=== PATIENT | female | born 1965 | race Caucasian/White ===

== ENCOUNTER 2017-11-30 12:42 | Inpatient (IN) | payer MEDICARE, MEDICAID ==
[2017-11-30] MEDS ORDERED: Albuterol 0.083% 2.5 MG/3 ML Neb Soln NEB ONE (14:06)
[2017-11-30] MEDS ORDERED: Ketorolac 30 MG/ML SDV IVPUSH ONE (16:57)
[2017-11-30] MEDS ORDERED: Sodium Chloride 0.9% 10 ML Syringe FLUSH PRN (16:57)
[2017-11-30] MEDS ORDERED: Sodium Chloride 0.9% 500 ML IV ONE (16:57)
--- NOTE | 2017-11-30 20:37 | EDM.PDOC ---
ED HPI GENERAL MEDICAL PROBLEM - General Chief Complaint: Respiratory Problem Stated Complaint: TROUBLE BREATHING Time Seen by Provider: 11/30/17 13:37 History Limitations: Reports: Physical Impairment - History of Present Illness INITIAL COMMENTS - FREE TEXT/NARRATIVE: 52-year-old disabled woman presents with [facility] staff for evaluation treatment of shortness of breath and wheezing. Patient was reportedly seen at the [place] walk-in clinic yesterday. She was diagnosed with influenza A and started on Tamiflu. She had labs and chest x-ray done, which were according to were staff unremarkable. There instructed to bring her to the ER should her breathing worsen. Appreciate today that she started wheezing and having more difficulty breathing. They report that she's had a fever, highest of 101.4, last night. She 's not had any vomiting or diarrhea. She did have 3 bowel movements today. She is dependent on oxygen via nasal cannula at 2 L. Staff states that they check her oxygen sats periodically and she has been satting on 98% on 2 L. she has a G-tube and she receives feedings around 8 AM, 3 PM and 9. They have increased her water flushes 150 mls to 250 mls due to recent illness. Have been giving Tylenol and Pedis relief for fevers and symptom relief. Last dose was around 1145. She received an influenza vaccine this season. Primary care provider is Puja Tompkins. She is a DNR/DNI. Treatments PET SITTER: Reports: Other (see below) - Related Data Allergies Allergy/AdvReac Type Severity Reaction Status Date / Time No Known Allergies Allergy Verified 12/06/15 12:12 Home Meds: Home Meds Cholecalciferol (Vitamin D3) [Vitamin D3] 2,000 unit PO DAILY 06/07/14 [History] Diazepam 5 mg PO BEDTIME 06/07/14 [History] Diazepam [Valium] 2.5 mg PO QAM 06/07/14 [History] Lactulose [Generlac] 30 ml PO BID 06/07/14 [History] PHENobarbital 32.4 mg PO QAM 06/07/14 [History] PHENobarbital 48.6 mg PO BEDTIME 06/07/14 [History] Antipyrine/Benzocaine [Otic Care Otic Solution] 5 - 10 drop EARBOTH ASDIRECTED PRN 06/23/14 [History] Fleet Pedia-Lax Suppository 1 mg RECTAL ASDIRECTED PRN 10/21/14 [History] Acetaminophen [Acephen] 325 mg RECTAL Q4HR PRN 12/06/15 [History] Clindamycin 1% Topical. 1 applic TOP BID 12/06/15 [History] Clotrimazole [Clotrimazole 1%] 1 applic TOP BID 12/06/15 [History] Desitin Rapid Relief Topical Cream 1 applic TOP ASDIRECTED PRN 12/06/15 [History ] Scopolamine [Transderm-Scop] 1 patch TOP Q72H 12/06/15 [History] carBAMazepine [Carbamazepine] 600 mg GTUBE BID 12/06/15 [History] Nutritional Supplement [Osmolite 1.2 Juan Manuel] 1 can GTUBE BID 11/30/17 [History] Nutritional Supplement [Osmolite 1.2 Juan Manuel] 2 can GTUBE BEDTIME 11/30/17 [History] Whey Protein Isolate [Beneprotein] 2 scoop GTUBE DAILY 11/30/17 [History] Past Medical History Musculoskeletal History: Reports: Other (See Below) Other Musculoskeletal History: 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; pt is w/c bound Neurological History: Reports: Cerebral Palsy, Seizure - Past Surgical History GI Surgical History: Reports: Other (See Below) Social & Family History - Tobacco Use Smoking Status *Q: Never Smoker Second Hand Smoke Exposure: No - Caffeine Use Caffeine Use: Reports: None - Alcohol Use Days Per Week of Alcohol Use: 0 - Recreational Drug Use Recreational Drug Use: No Drug Use in Last 12 Months: No ED ROS GENERAL - Review of Systems Review Of Systems: See Below (obtained from [facility] staff) Constitutional: Reports: Fever Respiratory: Reports: Shortness of Breath, Wheezing, Cough GI/Abdominal: Denies: Diarrhea, Vomiting ED EXAM, GENERAL - Physical Exam Exam: See Below Exam Limited By: Physical Impairment General Appearance: Moderate Distress, Other (wheelchair bound, severe scolosis) Ears: Normal External Exam Respiratory/Chest: Rhonchi, Wheezing, Other (tachypnea) Cardiovascular: No Murmur, Tachycardia GI/Abdominal: Soft, Other (G tube in place) Neurological: Alert Skin Exam: Warm, Dry, Normal Color Course - Vital Signs Last Recorded V/S: Last Vital Signs Temp 36.9 C 11/30/17 22:30 Pulse 109 H 11/30/17 13:37 Resp 29 H 11/30/17 22:30 BP 98/54 L 11/30/17 22:30 Pulse Ox 100 11/30/17 23:06 - Orders/Labs/Meds Orders: Active Orders 24 hr Category Date Time Status RT Aerosol Therapy [RC] ASDIRECTED Care 11/30/17 14:06 Active Chest 1V Frontal [CR] Stat Exams 11/30/17 14:06 Taken Sodium Chloride 0.9% [Saline Flush] Med 11/30/17 16:57 Active 10 ml FLUSH ASDIRECTED PRN Peripheral IV Insertion Adult [OM.PC] Routine Oth 11/30/17 16:57 Ordered Medication Orders Albuterol/Ipratropium (Duoneb 3.0-0.5 Mg/3 Ml) 3 ml NEB QIDRT [facility] Carbamazepine (Tegretol Tab) 600 mg GTUBE BID [facility] Diazepam (Valium.) 2.5 mg PO QAM [facility] Diazepam (Valium.) 5 mg PO BEDTIME [facility] Enoxaparin Sodium (Lovenox) 30 mg SUBCUT DAILY [facility] Sodium Chloride (Normal Saline) 1,000 mls @ 75 mls/hr IV ASDIRECTED [facility] Miscellaneous Information (Remove Patch) 1 ea TRDERM Q72H [facility] Phenobarbital (Phenobarbital) 32.4 mg PO QAM [facility] Phenobarbital (Phenobarbital) 48.6 mg PO BEDTIME [facility] Scopolamine (Scopolamine) 1 each TOP Q72H [facility] Sodium Chloride (Saline Flush) 10 ml FLUSH ASDIRECTED PRN PRN Reason: Keep Vein Open Last Admin: 11/30/17 18:04 Dose: 10 ml Labs: Laboratory Tests 11/30/17 11/30/17 Range/Units 17:50 17:50 WBC 7.93 (3.98-10.04) K/mm3 RBC 4.34 (3.98-5.22) M/mm3 Hgb 13.8 (11.2-15.7) gm/L Hct 41.6 (34.1-44.9) % MCV 95.9 H (79.4-94.8) fl MCH 31.8 (25.6-32.2) pg MCHC 33.2 (32.2-35.5) g/dl RDW Std Deviation 43.9 (36.4-46.3) fL Plt Count 174 L (182-369) K/mm3 MPV 10.3 (9.4-12.3) fl Neutrophils % (Manual) 69 H (40-60) % Band Neutrophils % 0 (0-10) % Lymphocytes % (Manual) 12 L (20-40) % Atypical Lymphs % 0 % Monocytes % (Manual) 19 H (2-10) % Eosinophils % (Manual) 0 L (0.7-5.8) % Basophils % (Manual) 0 L (0.1-1.2) Platelet Estimate Adequate Plt Morphology Comment Normal RBC Morph Comment Normal Sodium 133 L (136-145) mEq/L Potassium 4.4 (3.5-5.1) mEq/L Chloride 96 L (98-107) mEq/L Carbon Dioxide 32 (21-32) mEq/L Anion Gap 9.4 (5-15) BUN 11 (7-18) mg/dL Creatinine 0.6 (0.55-1.02) mg/dL Est Cr Clr Drug Dosing 67.52 mL/min Estimated GFR (MDRD) > 60 (>60) mL/min BUN/Creatinine Ratio 18.3 H (14-18) Glucose 115 H (74-106) mg/dL Calcium 9.2 (8.5-10.1) mg/dL Total Bilirubin 0.2 (0.2-1.0) mg/dL AST 30 (15-37) U/L ALT 38 (14-59) U/L Alkaline Phosphatase 114 (46-116) U/L C-Reactive Protein 23.7 H* (<1.0) mg/dL Total Protein 7.8 (6.4-8.2) g/dl Albumin 3.3 L (3.4-5.0) g/dl Globulin 4.5 gm/dL Albumin/Globulin Ratio 0.7 L (1-2) Meds: Medications Generic Name Dose Route Start Last Admin Trade Name Freq PRN Reason Stop Dose Admin Albuterol/Ipratropium 3 ml 12/01/17 22:39 Duoneb 3.0-0.5 Mg/3 Ml NEB QIDRT [facility] Carbamazepine 600 mg 11/30/17 22:45 Tegretol Tab GTUBE BID [facility] Diazepam 2.5 mg 12/01/17 08:00 Valium. PO QAM [facility] Diazepam 5 mg 11/30/17 22:51 Valium. PO BEDTIME [facility] Enoxaparin Sodium 30 mg 12/01/17 09:00 Lovenox SUBCUT DAILY [facility] Sodium Chloride 1,000 mls @ 75 mls/hr 11/30/17 22:30 Normal Saline IV ASDIRECTED [facility] Miscellaneous Information 1 ea 12/02/17 09:00 Remove Patch TRDERM Q72H [facility] Phenobarbital 32.4 mg 12/01/17 08:00 Phenobarbital PO QAM [facility] Phenobarbital 48.6 mg 11/30/17 23:00 Phenobarbital PO BEDTIME [facility] Scopolamine 1 each 12/02/17 09:00 Scopolamine TOP Q72H [facility] Sodium Chloride 10 ml 11/30/17 16:57 11/30/17 18:04 Saline Flush FLUSH 10 ml ASDIRECTED PRN Administration Keep Vein Open Discontinued Medications Generic Name Dose Route Start Last Admin Trade Name Freq PRN Reason Stop Dose Admin Albuterol 2.5 mg 11/30/17 14:06 11/30/17 14:12 Proventil Neb Soln NEB 11/30/17 14:07 2.5 mg ONETIME ONE Administration Albuterol/Ipratropium Confirm 11/30/17 22:51 11/30/17 22:57 Duoneb 3.0-0.5 Mg/3 Ml Administered 11/30/17 22:52 3 ml Dose Administration 3 ml .ROUTE .STK-MED ONE Diazepam 5 mg 12/01/17 21:00 Valium. PO BEDTIME [facility] Sodium Chloride 500 mls @ 500 mls/hr 11/30/17 16:57 11/30/17 18:03 Normal Saline IV 11/30/17 17:56 500 mls/hr ONETIME ONE Administration Sodium Chloride 1,000 mls @ 75 mls/hr 11/30/17 20:45 11/30/17 20:47 Normal Saline IV 75 mls/hr ASDIRECTED [facility] Administration Ketorolac Tromethamine 30 mg 11/30/17 16:57 11/30/17 18:04 Toradol IVPUSH 11/30/17 16:58 30 mg ONETIME ONE Administration Phenobarbital 48.6 mg 12/01/17 21:00 Phenobarbital PO BEDTIME [facility] - Radiology Interpretation Free Text/Narrative:: Chest: Portable view of the chest was obtained. Comparison: Prior chest x-ray of 12/06/15. Heart size and mediastinum are normal. Lungs are clear. Severe scoliosis is noted. Gastrostomy tube is seen. Impression: 1. Incidental findings. Nothing acute is appreciated. - Re-Assessments/Exams Free Text/Narrative Re-Assessment/Exam: 11/30/17 21:13 Obtained note from [facility] yesterday. States that she was influenza A positive and started on Tamiflu. Chest x-ray was interpreted by normal by this provider. CBC was reported as essentially normal. Initially I felt that we could possibly send her back after suctioning and albuterol treatments. We attempted to suction on several occasions and gave her an albuterol neb but this did not improve her wheezing and shortness of breath. I do feel she needs to be admitted. We have established an IV and started giving her fluid as well as obtaining labs. I informed the patient's mother, Lizzeth, at [phone] about my intention to admit her. She will likely come and see her tomorrow. Plan will be for [facility] staff to spend the night with her here in the hospital. Discussed the case with Dr. Johnson, hospitalist on-call. She has seen the patient in the ER and agrees to the admission. Departure - Departure Time of Disposition: 21:55 Disposition: Admitted As Inpatient 67 Condition: Poor Clinical Impression: Influenza A, Seizure disorder, Gastrostomy feeding - Discharge Information - My Orders Last 24 Hours: My Active Orders 11/30/17 14:06 RT Aerosol Therapy [RC] ASDIRECTED Chest 1V Frontal [CR] Stat 11/30/17 16:57 Sodium Chloride 0.9% [Saline Flush] 10 ml FLUSH ASDIRECTED PRN Peripheral IV Insertion Adult [OM.PC] Routine - Assessment/Plan Last 24 Hours: My Active Orders 11/30/17 14:06 RT Aerosol Therapy [RC] ASDIRECTED Chest 1V Frontal [CR] Stat 11/30/17 16:57 Sodium Chloride 0.9% [Saline Flush] 10 ml FLUSH ASDIRECTED PRN Peripheral IV Insertion Adult [OM.PC] Routine
[2017-11-30] MEDS ORDERED: Sodium Chloride 0.9% 1,000 ML IV SCH (20:45)
[2017-11-30] MEDS ORDERED: Albuterol/Ipratropium 3.0-0.5 MG/3 ML Neb Soln ONE (22:51)
[2017-12-01] MEDS: PHENobarbital 32.4 MG Tab PO SCH ×3 (00:15→21:00)
[2017-12-01] MEDS: carBAMazepine 200 MG Tab GTUBE SCH ×3 (00:15→20:59)
[2017-12-01] MEDS: Diazepam 5 MG Tab PO SCH ×3 (00:15→21:01)
[2017-12-01] MEDS: Sodium Chloride 0.9% 1,000 ML IV SCH ×2 (03:10→17:18)
[2017-12-01] MEDS: Albuterol/Ipratropium 3.0-0.5 MG/3 ML Neb Soln NEB SCH ×4 (05:10→20:14)
--- NOTE | 2017-12-01 08:02 | CR ---
Chest: Portable view of the chest was obtained. Comparison: Prior chest x-ray of 12/06/15. Heart size and mediastinum are normal. Lungs are clear. Severe scoliosis is noted. Gastrostomy tube is seen. Impression: 1. Incidental findings. Nothing acute is appreciated. Diagnostic code #2
[2017-12-01] MEDS ORDERED: Albuterol 0.083% 2.5 MG/3 ML Neb Soln ONE (08:19)
[2017-12-01] MEDS ORDERED: Albuterol 0.021% 0.63 MG/3 ML Neb Soln NEB PRN (08:26)
[2017-12-01] MEDS ORDERED: Enoxaparin 30 MG/0.3 ML Syringe SUBCUT SCH (09:00)
--- NOTE | 2017-12-01 16:27 | PCM.HP ---
H&P History of Present Illness - General Date of Service: 11/30/17 Admit Problem/Dx: Admission Diagnosis/Problem Admission Diagnosis/Problem Influenza Source of Information: Provider History Limitations: Reports: No Limitations - History of Present Illness Initial Comments - Free Text/Narative: 52 year old female with history of severe scoliosis, cerebral palsy presents with acute respiratory distress. She had nausea without vomiting. Temp was documented at 101.4F. She was diagnosed with Influenza A, 1 day [employer] and was started on Tamiflu at the [facility] in clinic. Reportedly the [facility] residents are on Tamiflu for Influenza prevention. It has been reported that the patient had a flu vaccination as well. She requires chronic O2 therapy, 2 l / min. This requirement is unchanged in the ED. CXR, labs are unremarkable, however she has experienced difficulty breathing. The patient requires airway suction every 2 hours. Onset of Symptoms: Reports: Unknown/Unsure Duration of Symptoms: Reports: Day(s):, Getting Worse Location: Reports: Chest, Generalized Severity: Moderate Improves with: Reports: Medication Worsens with: Reports: None Context: Reports: Sick Contact Associated Symptoms: Reports: Chest Pain, Fever/Chills, Nausea/Vomiting, Shortness of Breath, Weakness - Related Data Allergies/Adverse Reactions: Allergies Allergy/AdvReac Type Severity Reaction Status Date / Time No Known Allergies Allergy Verified 12/06/15 12:12 Home Medications: Home Meds Cholecalciferol (Vitamin D3) [Vitamin D3] 2,000 unit PO DAILY 06/07/14 [History] Diazepam 5 mg PO BEDTIME 06/07/14 [History] Diazepam [Valium] 2.5 mg PO QAM 06/07/14 [History] Lactulose [Generlac] 30 ml PO BID 06/07/14 [History] PHENobarbital 32.4 mg PO QAM 06/07/14 [History] PHENobarbital 48.6 mg PO BEDTIME 06/07/14 [History] Antipyrine/Benzocaine [Otic Care Otic Solution] 5 - 10 drop EARBOTH ASDIRECTED PRN 06/23/14 [History] Fleet Pedia-Lax Suppository 1 mg RECTAL ASDIRECTED PRN 10/21/14 [History] Acetaminophen [Acephen] 325 mg RECTAL Q4HR PRN 12/06/15 [History] Clindamycin 1% Topical. 1 applic TOP BID 12/06/15 [History] Clotrimazole [Clotrimazole 1%] 1 applic TOP BID 12/06/15 [History] Desitin Rapid Relief Topical Cream 1 applic TOP ASDIRECTED PRN 12/06/15 [History ] Scopolamine [Transderm-Scop] 1 patch TOP Q72H 12/06/15 [History] carBAMazepine [Carbamazepine] 600 mg GTUBE BID 12/06/15 [History] Nutritional Supplement [Osmolite 1.2 Juan Manuel] 1 can GTUBE BID 11/30/17 [History] Nutritional Supplement [Osmolite 1.2 Juan Manuel] 2 can GTUBE BEDTIME 11/30/17 [History] Whey Protein Isolate [Beneprotein] 2 scoop GTUBE DAILY 11/30/17 [History] Past Medical History Musculoskeletal History: Reports: Other (See Below) Other Musculoskeletal History: 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; pt is w/c bound Neurological History: Reports: Cerebral Palsy, Seizure - Past Surgical History GI Surgical History: Reports: Other (See Below) Social & Family History - Family History Family Medical History: Unobtainable - Tobacco Use Smoking Status *Q: Never Smoker Second Hand Smoke Exposure: No - Caffeine Use Caffeine Use: Reports: None - Alcohol Use Days Per Week of Alcohol Use: 0 - Recreational Drug Use Recreational Drug Use: No Drug Use in Last 12 Months: No H&P Review of Systems - Review of Systems: Review Of Systems: See Below General: Reports: Fever, Chills, Malaise, Weakness, Fatigue HEENT: Reports: No Symptoms Pulmonary: Reports: Shortness of Breath, Wheezing Cardiovascular: Reports: No Symptoms Gastrointestinal: Reports: No Symptoms Genitourinary: Reports: No Symptoms Musculoskeletal: Reports: No Symptoms Skin: Reports: No Symptoms Psychiatric: Reports: Confusion Neurological: Reports: No Symptoms Hematologic/Lymphatic: Reports: No Symptoms Immunologic: Reports: No Symptoms Exam - Exam Exam: See Below - Vital Signs Vital Signs: Last Vital Signs Temp 37.2 C 12/01/17 12:00 Pulse 109 H 11/30/17 13:37 Resp 30 H 12/01/17 12:00 BP 134/90 12/01/17 12:00 Pulse Ox 100 12/01/17 12:00 Weight: 38.555 kg - Exam Quality Assessment: Supplemental Oxygen, DVT Prophylaxis General: Lethargic HEENT: Pupils Equal, Pupils Reactive, PERRLA Neck: Other (scoliosis) Lungs: Decreased Breath Sounds, Rhonchi, Wheezing Cardiovascular: Regular Rate, Tachycardia GI/Abdominal Exam: Normal Bowel Sounds, Soft, Non-Tender, No Organomegaly, No Distention (Female) Exam: Deferred Rectal (Female) Exam: Deferred Back Exam: Other (profound curvature of the spine, 80 degree angle) Extremities: Slow Capillary Refill Skin: Intact Neuro Extensive - Mental Status: Inattentive Neuro Extensive - Motor, Sensory, Reflexes: CN II-XII Intact - Patient Data Result Diagrams: 11/30/17 17:50 11/30/17 17:50 *Q Meaningful Use (ADM) - VTE *Q VTE Criteria *Q: - Stroke *Q Stroke Criteria *Q: - AMI *Q AMI Criteria *Q: - Problem List (1) Gastrostomy feeding SNOMED Code(s): 100648594 ICD Code: Z93.1 - GASTROSTOMY STATUS Status: Acute Current Visit: Yes (2) Influenza A SNOMED Code(s): 858895479 ICD Code: J10.1 - FLU DUE TO OTH IDENT INFLUENZA VIRUS W OTH RESP MANIFEST Status: Acute Current Visit: Yes (3) Seizure disorder SNOMED Code(s): 791384881 ICD Code: G40.909 - EPILEPSY, UNSP, NOT INTRACTABLE, WITHOUT STATUS EPILEPTICUS Status: Acute Current Visit: Yes Onset Date: 09/23/14 Problem Details: history of (4) Cachexia SNOMED Code(s): 203752608 ICD Code: R64 - CACHEXIA Status: Acute Current Visit: No (5) Dysphagia SNOMED Code(s): 67089730 ICD Code: R13.10 - DYSPHAGIA, UNSPECIFIED Status: Acute Current Visit: No Problem List Initiated/Reviewed/Updated: Yes Orders Last 24hrs: Active Orders 24 hr Category Date Time Status Admission Status [Patient Status] [ADT] Routine ADT 11/30/17 22:05 Active Oxygen Therapy [RC] ASDIRECTED Care 11/30/17 23:41 Active NPO [Nothing Per Oral Diet] [DIET] Diet 11/30/17 Dinner Active Nothing Per Oral Diet [DIET] Diet 12/01/17 Lunch Active Tube Feeding Adult Diet [DIET] Diet 12/01/17 Dinner Active CULTURE MRSA SURVEY [RM] Routine Lab 12/01/17 14:00 Stop Req METH-RESIST S.AUR,MRSA BY PCR [MOLEC] Routine Lab 12/01/17 14:00 Received Albuterol [Proventil Neb Soln] Med 12/01/17 08:26 Active 0.63 mg NEB Q2H PRN Albuterol/Ipratropium [DuoNeb 3.0-0.5 MG/3 ML] Med 12/01/17 06:00 Active 3 ml NEB QIDRT Diazepam [Valium] Med 12/01/17 08:00 Active 2.5 mg PO QAM Diazepam [Valium] Med 11/30/17 22:51 Active 5 mg PO BEDTIME Enoxaparin [Lovenox] Med 12/02/17 09:00 Active 40 mg SUBCUT DAILY Oseltamivir [Tamiflu] Med 12/02/17 09:00 Active 75 mg PO DAILY PHENobarbital Med 12/01/17 08:00 Active 32.4 mg PO QAM PHENobarbital Med 11/30/17 23:00 Active 48.6 mg PO BEDTIME Remove Patch Med 12/02/17 09:00 Active 1 ea TRDERM Q72H Scopolamine Med 12/02/17 09:00 Active 1 each TOP Q72H Sodium Chloride 0.9% [Normal Saline] 1,000 ml Med 11/30/17 22:30 Active IV ASDIRECTED carBAMazepine [TEGretol Tab] Med 11/30/17 22:45 Active 600 mg GTUBE BID RT Suction Oropharyngeal [RESPCARE] Routine Oth 11/30/17 22:33 Ordered Code Status [Resuscitation Status] Routine Resus Stat 11/30/17 23:57 Ordered Medication Orders Albuterol (Proventil Neb Soln) 0.63 mg NEB Q2H PRN PRN Reason: Wheezing Albuterol/Ipratropium (Duoneb 3.0-0.5 Mg/3 Ml) 3 ml NEB QIDRT [facility] Last Admin: 12/01/17 15:54 Dose: 3 ml Admin: 12/01/17 10:04 Dose: 3 ml Admin: 12/01/17 05:10 Dose: 3 ml Carbamazepine (Tegretol Tab) 600 mg GTUBE BID [facility] Last Admin: 12/01/17 09:40 Dose: 600 mg Admin: 12/01/17 00:15 Dose: 600 mg Diazepam (Valium.) 2.5 mg PO QAM [facility] Last Admin: 12/01/17 09:40 Dose: 2.5 mg Diazepam (Valium.) 5 mg PO BEDTIME [facility] Last Admin: 12/01/17 00:15 Dose: 5 mg Enoxaparin Sodium (Lovenox) 40 mg SUBCUT DAILY [facility] Sodium Chloride (Normal Saline) 1,000 mls @ 75 mls/hr IV ASDIRECTED [facility] Last Admin: 12/01/17 03:10 Dose: 75 mls/hr Miscellaneous Information (Remove Patch) 1 ea TRDERM Q72H [facility] Oseltamivir Phosphate (Tamiflu) 75 mg PO DAILY [facility] Stop: 12/05/17 09:01 Phenobarbital (Phenobarbital) 32.4 mg PO QAM [facility] Last Admin: 12/01/17 09:41 Dose: 32.4 mg Phenobarbital (Phenobarbital) 48.6 mg PO BEDTIME [facility] Last Admin: 12/01/17 00:15 Dose: 48.6 mg Scopolamine (Scopolamine) 1 each TOP Q72H [facility] Sodium Chloride (Saline Flush) 10 ml FLUSH ASDIRECTED PRN PRN Reason: Keep Vein Open Last Admin: 11/30/17 18:04 Dose: 10 ml Assessment/Plan Comment:: Impression: Febrile illness Acute respiratory distress Acute Influenza A infection; failed Flu vaccination Dehydration Cerebral Palsy Seizure Disorder Severe Scoliosis; restrictive airway disease Plan: Scheduled suction Q2 hours IVF Tamiflu Nebs scheduled and prn Keep O2 sat > 92% SZ/home meds Aspiration precautions Resume tube feeds with free H2O DVT/GI prophylaxis DC to [facility] Facility
--- NOTE | 2017-12-01 16:27 | PCM.PN ---
- General Info Date of Service: 12/01/17 Functional Status: Reports: Tolerating Diet, Urinating - Review of Systems General: Reports: No Symptoms HEENT: Reports: No Symptoms Pulmonary: Reports: No Symptoms Cardiovascular: Reports: No Symptoms Gastrointestinal: Reports: No Symptoms Genitourinary: Reports: No Symptoms Musculoskeletal: Reports: No Symptoms Skin: Reports: No Symptoms Neurological: Reports: No Symptoms Psychiatric: Reports: No Symptoms - Patient Data Vitals - Most Recent: Last Vital Signs Temp 37.2 C 12/01/17 12:00 Pulse 109 H 11/30/17 13:37 Resp 30 H 12/01/17 12:00 BP 134/90 12/01/17 12:00 Pulse Ox 100 12/01/17 12:00 Weight - Most Recent: 38.555 kg I&O - Last 24 Hours: Intake & Output 12/01/17 12/01/17 12/01/17 06:59 14:59 22:59 Intake Total 924 Balance 924 Med Orders - Current: Current Medications Albuterol (Proventil Neb Soln) 0.63 mg NEB Q2H PRN PRN Reason: Wheezing Albuterol/Ipratropium (Duoneb 3.0-0.5 Mg/3 Ml) 3 ml NEB QIDRT [facility] Last Admin: 12/01/17 15:54 Dose: 3 ml Carbamazepine (Tegretol Tab) 600 mg GTUBE BID [facility] Last Admin: 12/01/17 09:40 Dose: 600 mg Diazepam (Valium.) 2.5 mg PO QAM [facility] Last Admin: 12/01/17 09:40 Dose: 2.5 mg Diazepam (Valium.) 5 mg PO BEDTIME [facility] Last Admin: 12/01/17 00:15 Dose: 5 mg Enoxaparin Sodium (Lovenox) 40 mg SUBCUT DAILY [facility] Sodium Chloride (Normal Saline) 1,000 mls @ 75 mls/hr IV ASDIRECTED [facility] Last Admin: 12/01/17 03:10 Dose: 75 mls/hr Miscellaneous Information (Remove Patch) 1 ea TRDERM Q72H [facility] Oseltamivir Phosphate (Tamiflu) 75 mg PO DAILY [facility] Stop: 12/05/17 09:01 Phenobarbital (Phenobarbital) 32.4 mg PO QAM [facility] Last Admin: 12/01/17 09:41 Dose: 32.4 mg Phenobarbital (Phenobarbital) 48.6 mg PO BEDTIME [facility] Last Admin: 12/01/17 00:15 Dose: 48.6 mg Scopolamine (Scopolamine) 1 each TOP Q72H [facility] Sodium Chloride (Saline Flush) 10 ml FLUSH ASDIRECTED PRN PRN Reason: Keep Vein Open Last Admin: 11/30/17 18:04 Dose: 10 ml Discontinued Medications Albuterol (Proventil Neb Soln) 2.5 mg NEB ONETIME ONE Stop: 11/30/17 14:07 Last Admin: 11/30/17 14:12 Dose: 2.5 mg Albuterol (Proventil Neb Soln) Confirm Administered Dose 2.5 mg .ROUTE .STK-MED ONE Stop: 12/01/17 08:20 Last Admin: 12/01/17 08:39 Dose: 2.5 mg Albuterol/Ipratropium (Duoneb 3.0-0.5 Mg/3 Ml) 3 ml NEB QIDRT [facility] Albuterol/Ipratropium (Duoneb 3.0-0.5 Mg/3 Ml) Confirm Administered Dose 3 ml .ROUTE .STK-MED ONE Stop: 11/30/17 22:52 Last Admin: 11/30/17 22:57 Dose: 3 ml Diazepam (Valium.) 5 mg PO BEDTIME [facility] Enoxaparin Sodium (Lovenox) 30 mg SUBCUT DAILY [facility] Last Admin: 12/01/17 09:41 Dose: 30 mg Sodium Chloride (Normal Saline) 500 mls @ 500 mls/hr IV ONETIME ONE Stop: 11/30/17 17:56 Last Admin: 11/30/17 18:03 Dose: 500 mls/hr Sodium Chloride (Normal Saline) 1,000 mls @ 75 mls/hr IV ASDIRECTED [facility] Last Admin: 11/30/17 20:47 Dose: 75 mls/hr Ketorolac Tromethamine (Toradol) 30 mg IVPUSH ONETIME ONE Stop: 11/30/17 16:58 Last Admin: 11/30/17 18:04 Dose: 30 mg Phenobarbital (Phenobarbital) 48.6 mg PO BEDTIME [facility] - Exam Quality Assessment: Supplemental Oxygen, DVT Prophylaxis General: Alert, Oriented, Cooperative, No Acute Distress HEENT: Pupils Equal, Pupils Reactive, EOMI Neck: Trachea Midline, No JVD Lungs: Decreased Breath Sounds, Wheezing Cardiovascular: Regular Rate, Regular Rhythm GI/Abdominal Exam: Normal Bowel Sounds, Soft, Non-Tender, No Organomegaly, No Distention (Female) Exam: Deferred Back Exam: Normal Inspection Extremities: Normal Inspection Skin: Warm Neurological: No New Focal Deficit Psy/Mental Status: Alert - Problem List Review Problem List Initiated/Reviewed/Updated: Yes - My Orders Last 24 Hours: My Active Orders 11/30/17 22:05 Admission Status [Patient Status] [ADT] Routine 11/30/17 22:30 Sodium Chloride 0.9% [Normal Saline] 1,000 ml IV ASDIRECTED 11/30/17 22:33 RT Suction Oropharyngeal [RESPCARE] Routine 11/30/17 22:45 carBAMazepine [TEGretol Tab] 600 mg GTUBE BID 11/30/17 22:51 Diazepam [Valium] 5 mg PO BEDTIME 11/30/17 23:00 PHENobarbital 48.6 mg PO BEDTIME 11/30/17 23:41 Oxygen Therapy [RC] ASDIRECTED 11/30/17 23:57 Code Status [Resuscitation Status] Routine 11/30/17 Dinner NPO [Nothing Per Oral Diet] [DIET] 12/01/17 06:00 Albuterol/Ipratropium [DuoNeb 3.0-0.5 MG/3 ML] 3 ml NEB QIDRT 12/01/17 08:00 Diazepam [Valium] 2.5 mg PO QAM PHENobarbital 32.4 mg PO QAM 12/01/17 14:00 CULTURE MRSA SURVEY [RM] Routine METH-RESIST S.AUR,MRSA BY PCR [MOLEC] Routine 12/01/17 Dinner Tube Feeding Adult Diet [DIET] 12/01/17 Lunch Nothing Per Oral Diet [DIET] 12/02/17 09:00 Enoxaparin [Lovenox] 40 mg SUBCUT DAILY Oseltamivir [Tamiflu] 75 mg PO DAILY Remove Patch 1 ea TRDERM Q72H Scopolamine 1 each TOP Q72H - Plan Plan:: Impression: Febrile illness Acute respiratory distress Acute Influenza A infection; failed Flu vaccination Dehydration Cerebral Palsy Seizure Disorder Severe Scoliosis; restrictive airway disease Plan: Scheduled suction Q2 hours IVF Tamiflu Nebs scheduled and prn Keep O2 sat > 92% SZ/home meds Aspiration precautions Resume tube feeds with free H2O DVT/GI prophylaxis DC to [facility]
[2017-12-01] MEDS ORDERED: Acetaminophen 325 MG Supp RECTAL PRN (16:58)
[2017-12-01] MEDS ORDERED: Furosemide 20 MG/2 ML VIAL IVPUSH ONE (20:34)
[2017-12-01] MEDS: Lactulose Soln 10 GM/15 ML 30 ML UD Cup PO SCH (20:59)
[2017-12-01] MEDS ORDERED: PHENobarbital 32.4 MG Tab PO SCH (21:00)
[2017-12-01] MEDS ORDERED: Diazepam 5 MG Tab PO SCH (21:00)
[2017-12-01] MEDS ORDERED: NUTRITIONAL SUPPLEMENT GTUBE SCH ×2 (21:00)
[2017-12-01] MEDS ORDERED: Albuterol/Ipratropium 3.0-0.5 MG/3 ML Neb Soln NEB SCH (22:39)
[2017-12-02] MEDS: Albuterol/Ipratropium 3.0-0.5 MG/3 ML Neb Soln NEB SCH ×2 (05:00→09:37)
[2017-12-02] MEDS ORDERED: Oseltamivir 75 MG Cap PO SCH (09:00)
[2017-12-02] MEDS ORDERED: WHEY PROTEIN ISOLATE GTUBE SCH (09:00)
[2017-12-02] MEDS ORDERED: Scopolamine 1 MG Transdermal Patch TOP SCH (09:00)
[2017-12-02] MEDS ORDERED: Enoxaparin 40 MG/0.4 ML Syringe SUBCUT SCH (09:00)
[2017-12-02] MEDS: carBAMazepine 200 MG Tab GTUBE SCH (09:44)
[2017-12-02] MEDS: Lactulose Soln 10 GM/15 ML 30 ML UD Cup PO SCH (09:44)
[2017-12-02] MEDS: PHENobarbital 32.4 MG Tab PO SCH (09:44)
[2017-12-02] MEDS: Diazepam 5 MG Tab PO SCH (09:44)
--- NOTE | 2017-12-02 12:09 | PCM.DCSUM1 ---
Discharge Summary - Hospital Course Free Text/Narrative:: 52 year old female in [facility] presented in respiratory distress, had been started on TamiFlu without significant improvement. many of the residents have been started on TamiFlu prophylactically. She tested positive for Influenza A; the patient was treated in the ICU with aggressive nebulizer therapy and required suctioning every 2 hours ATC. Aspiration precautions were also taken. She was [facility] to her [facility] with equipment for 30 days to continue current therapy. Primary Dx Influenza A Acute respiratory distress Cerebral Palsy Condition Stable Activity As tolerated Meds See discharge plan Diet TF as scheduled, previous diet resumed. - Discharge Data Discharge Date: 12/02/17 Discharge Disposition: DC/Tfer to [facility] Condition: Good - Patient Instructions Diet: Usual Diet as Tolerated Activity: As Tolerated Driving: Do Not Drive Showering/Bathing: May Shower Notify Provider of: Fever, Nausea and/or Vomiting - Discharge Plan Prescriptions/Med Rec: Albuterol [Proventil Neb Soln] 0.63 mg NEB Q2H PRN #60 neb PRN Reason: Wheezing Oseltamivir Phosphate [IJD: Tamiflu] 75 mg PO DAILY #5 capsule Home Medications: Home Meds Cholecalciferol (Vitamin D3) [Vitamin D3] 2,000 unit PO DAILY 06/07/14 [History] Diazepam 5 mg PO BEDTIME 06/07/14 [History] Diazepam [Valium] 2.5 mg PO QAM 06/07/14 [History] Lactulose [Generlac] 30 ml PO BID 06/07/14 [History] PHENobarbital 32.4 mg PO QAM 06/07/14 [History] PHENobarbital 48.6 mg PO BEDTIME 06/07/14 [History] Antipyrine/Benzocaine [Otic Care Otic Solution] 5 - 10 drop EARBOTH ASDIRECTED PRN 06/23/14 [History] Fleet Pedia-Lax Suppository 1 mg RECTAL ASDIRECTED PRN 10/21/14 [History] Acetaminophen [Acephen] 325 mg RECTAL Q4HR PRN 12/06/15 [History] Clindamycin 1% Topical. 1 applic TOP BID 12/06/15 [History] Clotrimazole [Clotrimazole 1%] 1 applic TOP BID 12/06/15 [History] Desitin Rapid Relief Topical Cream 1 applic TOP ASDIRECTED PRN 12/06/15 [History ] Scopolamine [Transderm-Scop] 1 patch TOP Q72H 12/06/15 [History] carBAMazepine [Carbamazepine] 600 mg GTUBE BID 12/06/15 [History] Nutritional Supplement [Osmolite 1.2 Juan Manuel] 1 can GTUBE BID 11/30/17 [History] Nutritional Supplement [Osmolite 1.2 Juan Manuel] 2 can GTUBE BEDTIME 11/30/17 [History] Whey Protein Isolate [Beneprotein] 2 scoop GTUBE DAILY 11/30/17 [History] Albuterol [Proventil Neb Soln] 0.63 mg NEB Q2H PRN #60 neb 12/02/17 [Rx] Oseltamivir Phosphate [IJD: Tamiflu] 75 mg PO DAILY #5 capsule 12/02/17 [Rx] Forms: ED Department Discharge Referrals: PCP,Unknown [Primary Care Provider] - - Discharge Summary/Plan Comment DC Time >30 min.: No - General Info Date of Service: 11/30/17 Functional Status: Reports: Tolerating Diet, Urinating - Review of Systems General: Reports: No Symptoms HEENT: Reports: No Symptoms Pulmonary: Reports: No Symptoms Cardiovascular: Reports: No Symptoms Gastrointestinal: Reports: No Symptoms Genitourinary: Reports: No Symptoms Musculoskeletal: Reports: No Symptoms Skin: Reports: No Symptoms Neurological: Reports: No Symptoms Psychiatric: Reports: No Symptoms - Patient Data Vitals - Most Recent: Last Vital Signs Temp 36.9 C 12/02/17 03:33 Pulse 112 H 12/02/17 03:33 Resp 23 H 12/02/17 03:33 BP 149/93 H 12/02/17 03:33 Pulse Ox 100 12/02/17 09:38 Weight - Most Recent: 38.283 kg I&O - Last 24 hours: Intake & Output 12/01/17 12/02/17 12/02/17 22:59 06:59 14:59 Intake Total 1734 720 Balance 1734 720 Lab Results - Last 24 hrs: Laboratory Results - last 24 hr 12/01/17 12/02/17 12/02/17 Range/Units 14:00 05:23 05:23 WBC 5.53 (3.98-10.04) K/mm3 RBC 3.80 L (3.98-5.22) M/mm3 Hgb 12.3 (11.2-15.7) gm/L Hct 37.0 (34.1-44.9) % MCV 97.4 H (79.4-94.8) fl MCH 32.4 H (25.6-32.2) pg MCHC 33.2 (32.2-35.5) g/dl RDW Std Deviation 45.8 (36.4-46.3) fL Plt Count 182 (182-369) K/mm3 MPV 10.7 (9.4-12.3) fl Neut % (Auto) 59.9 (34.0-71.1) % Lymph % (Auto) 21.0 (19.3-51.7) % Sibley % (Auto) 18.3 H (4.7-12.5) % Eos % (Auto) 0.4 L (0.7-5.8) Baso % (Auto) 0.4 (0.1-1.2) % Neut # (Auto) 3.32 (1.56-6.13) K/mm3 Lymph # (Auto) 1.16 L (1.18-3.74) K/mm3 Sibley # (Auto) 1.01 H (0.24-0.36) K/mm3 Eos # (Auto) 0.02 L (0.04-0.36) K/mm3 Baso # (Auto) 0.02 (0.01-0.08) K/mm3 Manual Slide Review Abnormal smear Sodium 143 (136-145) mEq/L Potassium 3.3 L (3.5-5.1) mEq/L Chloride 103 (98-107) mEq/L Carbon Dioxide 34 H (21-32) mEq/L Anion Gap 9.3 (5-15) BUN 11 (7-18) mg/dL Creatinine 0.5 L (0.55-1.02) mg/dL Est Cr Clr Drug Dosing 80.45 mL/min Estimated GFR (MDRD) > 60 (>60) mL/min BUN/Creatinine Ratio 22.0 H (14-18) Glucose 100 (74-106) mg/dL Calcium 8.5 (8.5-10.1) mg/dL Magnesium 1.8 (1.8-2.4) mg/dl C-Reactive Protein 13.6 H* (<1.0) mg/dL MRSA (PCR) Negative Med Orders - Current: Current Medications Acetaminophen (Tylenol) 325 mg RECTAL Q4HR PRN PRN Reason: Not Listed Albuterol (Proventil Neb Soln) 0.63 mg NEB Q2H PRN PRN Reason: Wheezing Last Admin: 12/02/17 01:48 Dose: 0.63 mg Albuterol/Ipratropium (Duoneb 3.0-0.5 Mg/3 Ml) 3 ml NEB QIDRT [facility] Last Admin: 12/02/17 09:37 Dose: 3 ml Carbamazepine (Tegretol Tab) 600 mg GTUBE BID [facility] Last Admin: 12/02/17 09:44 Dose: 600 mg Diazepam (Valium.) 2.5 mg PO QAM [facility] Last Admin: 12/02/17 09:44 Dose: 2.5 mg Diazepam (Valium.) 5 mg PO BEDTIME [facility] Last Admin: 12/01/17 21:01 Dose: 5 mg Enoxaparin Sodium (Lovenox) 40 mg SUBCUT DAILY [facility] Last Admin: 12/02/17 09:44 Dose: 40 mg Sodium Chloride (Normal Saline) 1,000 mls @ 75 mls/hr IV ASDIRECTED [facility] Last Infusion: 12/01/17 20:36 Dose: 0 mls/hr Lactulose (Cephulac) 20 gm PO BID [facility] Last Admin: 12/02/17 09:44 Dose: 20 gm Miscellaneous Information (Remove Patch) 1 ea TRDERM Q72H [facility] Last Admin: 12/02/17 09:45 Dose: 1 ea Oseltamivir Phosphate (Tamiflu) 75 mg PO DAILY [facility] Stop: 12/05/17 09:01 Last Admin: 12/02/17 09:44 Dose: 75 mg Phenobarbital (Phenobarbital) 32.4 mg PO QAM [facility] Last Admin: 12/02/17 09:44 Dose: 32.4 mg Phenobarbital (Phenobarbital) 48.6 mg PO BEDTIME [facility] Last Admin: 12/01/17 21:00 Dose: 48.6 mg Scopolamine (Scopolamine) 1 each TOP Q72H [facility] Last Admin: 12/02/17 10:00 Dose: 1 each Sodium Chloride (Saline Flush) 10 ml FLUSH ASDIRECTED PRN PRN Reason: Keep Vein Open Last Admin: 11/30/17 18:04 Dose: 10 ml Discontinued Medications Albuterol (Proventil Neb Soln) 2.5 mg NEB ONETIME ONE Stop: 11/30/17 14:07 Last Admin: 11/30/17 14:12 Dose: 2.5 mg Albuterol (Proventil Neb Soln) Confirm Administered Dose 2.5 mg .ROUTE .STK-MED ONE Stop: 12/01/17 08:20 Last Admin: 12/01/17 08:39 Dose: 2.5 mg Albuterol/Ipratropium (Duoneb 3.0-0.5 Mg/3 Ml) 3 ml NEB QIDRT [facility] Albuterol/Ipratropium (Duoneb 3.0-0.5 Mg/3 Ml) Confirm Administered Dose 3 ml .ROUTE .STK-MED ONE Stop: 11/30/17 22:52 Last Admin: 11/30/17 22:57 Dose: 3 ml Diazepam (Valium.) 5 mg PO BEDTIME [facility] Enoxaparin Sodium (Lovenox) 30 mg SUBCUT DAILY [facility] Last Admin: 12/01/17 09:41 Dose: 30 mg Furosemide (Lasix) 10 mg IVPUSH NOW ONE Stop: 12/01/17 20:35 Last Admin: 12/01/17 20:56 Dose: 10 mg Sodium Chloride (Normal Saline) 500 mls @ 500 mls/hr IV ONETIME ONE Stop: 11/30/17 17:56 Last Admin: 11/30/17 18:03 Dose: 500 mls/hr Sodium Chloride (Normal Saline) 1,000 mls @ 75 mls/hr IV ASDIRECTED [facility] Last Admin: 11/30/17 20:47 Dose: 75 mls/hr Ketorolac Tromethamine (Toradol) 30 mg IVPUSH ONETIME ONE Stop: 11/30/17 16:58 Last Admin: 11/30/17 18:04 Dose: 30 mg Non-Formulary Medication (Nutritional Supplement [Osmolite 1.2 Juan Manuel]) 2 can GTUBE BEDTIME [facility] Non-Formulary Medication (Nutritional Supplement [Osmolite 1.2 Juan Manuel]) 1 can GTUBE BID [facility] Non-Formulary Medication ([place] Protein Isolate [Beneprotein]) 2 scoop GTUBE DAILY [facility] Phenobarbital (Phenobarbital) 48.6 mg PO BEDTIME [facility] - Exam Quality Assessment: Reports: Supplemental Oxygen, DVT Prophylaxis General: Reports: Alert, Oriented, Cooperative, No Acute Distress HEENT: Reports: Pupils Equal, Pupils Reactive, EOMI Neck: Reports: No JVD Lungs: Reports: Normal Respiratory Effort Cardiovascular: Reports: Regular Rate, Regular Rhythm GI/Abdominal Exam: Normal Bowel Sounds, Soft, Non-Tender, No Organomegaly, No Distention (Female) Exam: Deferred Rectal (Female) Exam: Deferred Back Exam: Reports: Normal Inspection Extremities: Normal Inspection Skin: Reports: Warm Neurological: Reports: No New Focal Deficit Psy/Mental Status: Reports: Alert *Q Meaningful Use (DIS) - VTE *Q VTE Criteria *Q: - Stroke *Q Stroke Criteria *Q: - AMI *Q AMI Criteria *Q:
[2017-12-02 12:32] VITALS: BP 131/95
== END 2017-12-02 14:23 | DRG 194 ==
LOC: JD.ED 12:42 → UNDOADMIN 21:14 → JD.ICU 21:14 → UNDODISIN 12-02 14:23
PROVIDERS: ADMIT Internal Medicine Cardiovascular Disease; ATTEND Internal Medicine Cardiovascular Disease
DX: J10.1 Influenza due to other identified influenza virus with other respiratory manifestations (principal); R64 Cachexia; G40.909 Epilepsy, unspecified, not intractable, without status epilepticus; R13.10 Dysphagia, unspecified; R06.03 Acute respiratory distress; E86.0 Dehydration; G80.9 Cerebral palsy, unspecified; Z93.1 Gastrostomy status; M41.9 Scoliosis, unspecified; R50.9 Fever, unspecified; Z79.899 Other long term (current) drug therapy
CPT/HCPCS: 36415; 71045; 80053; 85025; 86140; 94640; 96361; 96374; 99285; J1885; J7040 ×2; J7050; 80048; 83735; 87641; A9270-GY; J1650

== ENCOUNTER 2020-07-14 09:19 | Emergency (ER) | payer MEDICARE, MEDICAID ==
--- NOTE | 2020-07-14 09:37 | EDM.PDOC ---
<Tarik Morales - Last Filed: 07/14/20 09:59> ED HPI GENERAL MEDICAL PROBLEM - General Chief Complaint: Respiratory Problem Stated Complaint: FEVER Time Seen by Provider: 07/14/20 09:37 - Related Data Allergies Allergy/AdvReac Type Severity Reaction Status Date / Time No Known Allergies Allergy Verified 06/14/19 17:18 Home Meds: Home Meds Cholecalciferol (Vitamin D3) [Vitamin D3] 2,000 unit PO DAILY 06/07/14 [History] Lactulose [Generlac] 30 ml PO BID 06/07/14 [History] PHENobarbitaL [PHENobarbital] 32.4 mg PO QAM 06/07/14 [History] PHENobarbitaL [PHENobarbital] 48.6 mg PO BEDTIME 06/07/14 [History] diazePAM [Diazepam] 5 mg PO BEDTIME 06/07/14 [History] diazePAM [Valium] 2.5 mg PO QAM 06/07/14 [History] Antipyrine/Benzocaine [Otic Care Otic Solution] 5 - 10 drop EARBOTH ASDIRECTED PRN 06/23/14 [History] Fleet Pedia-Lax Suppository 1 mg RECTAL ASDIRECTED PRN 10/21/14 [History] Acetaminophen [Acephen] 325 mg RECTAL Q4HR PRN 12/06/15 [History] Clindamycin 1% Topical. 1 applic TOP BID 12/06/15 [History] Clotrimazole [Clotrimazole 1%] 1 applic TOP BID 12/06/15 [History] Desitin Rapid Relief Topical Cream 1 applic TOP ASDIRECTED PRN 12/06/15 [History] Scopolamine [Transderm-Scop] 1 patch TOP Q72H 12/06/15 [History] carBAMazepine [Carbamazepine] 600 mg GTUBE BID 12/06/15 [History] Nutritional Supplement [Osmolite 1.2 Juan Manuel] 1 can GTUBE BID 11/30/17 [History] Nutritional Supplement [Osmolite 1.2 Juan Manuel] 2 can GTUBE BEDTIME 11/30/17 [History] Whey Protein Isolate [Beneprotein] 2 scoop GTUBE DAILY 11/30/17 [History] Albuterol [Proventil Neb Soln] 0.63 mg NEB Q2H PRN #60 neb 12/02/17 [Rx] Oseltamivir Phosphate [IJD: Tamiflu] 75 mg PO DAILY #5 capsule 12/02/17 [Rx] ED ROS GENERAL - Review of Systems Review Of Systems: Unable To Obtain (Patient is non-verbal and suffers from severe cerebral palsy) ED EXAM, GENERAL - Physical Exam Exam: See Below Exam Limited By: Other (Patient is nonverbal and suffers from severe cerebral palsy) General Appearance: Anxious, Other (Patient is small in stature with contractures to upper extremities. Very restless and appears agitated.) Ears: Other (Significant cauliflower ear to bilateral ears, especially the right ear. Cerumen impaction bilaterally with difficulty visualizing tympanic menbrane). No: Normal External Exam Throat/Mouth: Other (mouth and lips are dry. Poor dentation with a coated tongue.). No: Normal Inspection, Normal Lips, Normal Teeth, Normal Voice Head: Atraumatic Neck: Other (Limited range of motion due to cerebral palsy). No: Full Range of Motion Respiratory/Chest: Rhonchi, Wheezing, Other (Audible upper respiratory wheezing. Tachypneic respirations. Has supplemental O2 per nasal cannula.). No: Lungs Clear, Normal Breath Sounds Cardiovascular: No Edema, No JVD, Tachycardia GI/Abdominal: Soft, No Distention, Pelvis Stable (Female) Exam: Deferred Rectal (Female) Exam: Deferred Back Exam: No: Full Range of Motion Extremities: No: Normal Range of Motion Neurological: Other (history of severe cerebral palsy). No: Oriented, Normal Cognition, Normal Gait, Normal Reflexes, No Motor/Sensory Deficits Psychiatric: Other (Patient apprears restless and agitated. Caregiver states that this in not unusual for this patient.) Skin Exam: Warm, Dry, Intact, Normal Color, No Rash Departure - Departure Disposition: Home, Self-Care 01 Clinical Impression: Acute febrile illness, Lab test positive for detection of COVID-19 virus - Discharge Information Instructions: COVID-19 Frequently Asked Questions, COVID-19: How to Protect Yourself and Others - [facility] Referrals: Puja Tompkins, [employer] [Primary Care Provider] - Forms: ED Department Discharge Additional Instructions: Evaluation in the emergency room today in regards to acute onset of fever last evening associated with cough and diffuse wheezing. Chest x-ray was a very poor quality due to the patient's positioning and flexion contractures of her right upper extremity which crossover her right lung field. No obvious pneumonia was identified on visualized portions of the lungs on both sides. She is exhibiting audible wheezing throughout all lung landaver[place]. She did have a low-grade fever. Lab tests revealed normal white count with no signs of a bacterial infection. COVID-19 screen however was positive. Unfortunately due to her condition she is likely to succumb to this illness over the next few weeks. She will developed gradually worsening shortness of breath and dyspnea and wheezing. She will need to be quarantined in her own room for the next 14 days. Feedings which should continue as per usual. Tylenol 650 mg every 4-6 hours as necessary for fever relief. Continuing suctioning of her upper airway may help alleviate some of her respiratory distress. The most important thing is that people caring for her in the [facility] setting where appropriate personal protection equipment to keep themselves from getting infected. I would advise that all care workers and other members of the [facility] tested for COVID-19 early next week if possible. <Jamse Rosa - Last Filed: 07/14/20 19:17> ED HPI GENERAL MEDICAL PROBLEM - General Source of Information: Reports: Patient History Limitations: Reports: Physical Impairment (Patient suffers from severe cerebral palsy and is noncommunicative. She gets agitated and flails her arms particular her left arm when she gets excited or agitated.) - History of Present Illness INITIAL COMMENTS - FREE TEXT/NARRATIVE: 54-year-old female brought to the ED for evaluation of fever that started yesterday. Care staff also identifies that she is wheezing much more than normal. She does have a history of reactive airways disease. She is fed totally by a feeding tube at 3 times a day 3:00 9:00 and 8:00 in the morning. Gets her water with her medications that are crushed and given via G-tube. She is not prone to urinary tract infections. She has had pneumonia in the past. She did not eat very much for breakfast this morning. She had did have Tylenol given at 0730 hrs. this morning crushed via G-tube. She still feels warm to palpation. Currently care staff has been suctioning her which they do routinely as she has retained secretions in her upper airway mainly saliva. Did not comment on change in color of the material suctioned. Onset: Sudden Onset Date: 07/13/20 Onset Time: 18:00 Duration: Hour(s):, Getting Worse Location: Reports: Chest, Other ([place] with fever and increased wheezing) Severity: Moderate (O2 sats are 100% on room air.) Worsens with: Reports: None Context: Reports: Other (Lives in a [facility] setting with many other patients. No one is known to have COVID.). Denies: Activity, Exercise, Lifting, Sick Contact, Trauma Associated Symptoms: Reports: Cough, Fever/Chills, Weakness, Other (Patient is). Denies: Confusion, Chest Pain, cough w sputum, Diaphoresis, Headaches, Nausea/Vomiting, Rash, Seizure, Shortness of Breath, Syncope Treatments RECORD CHANGER TESTER: Reports: Acetaminophen ( nonverbal and gets around in a wheelchair or is bedridden. Been at 0730 hrs. 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 Patient is nonverbal. She resides in a wheelchair that she is not able to operate on her own or is bedridden.), Seizure - Past Surgical History GI Surgical History: Reports: Other (See Below) Social & Family History - Family History Family Medical History: Unobtainable - Caffeine Use Caffeine Use: Reports: None - Living Situation & Occupation Living situation: Reports: Extended Care Facility (Patient lives in a [facility] or [facility] facility.) Occupation: Disabled ED EXAM, GENERAL - Physical Exam Exam Limited By: Physical Impairment (History of severe cerebral palsy and does not answer any questions as she is nonverbal.) General Appearance: Thin Eye Exam: Bilateral Eye: Normal Inspection, PERRL Course - Vital Signs Last Recorded V/S: Last Vital Signs Temp 37.6 C 07/14/20 09:35 Pulse 118 H 07/14/20 09:35 Resp 20 07/14/20 09:35 BP Pulse Ox 98 07/14/20 09:54 - Orders/Labs/Meds Orders: Active Orders 24 hr Category Date Time Status CULTURE BLOOD [BC] Stat Lab 07/14/20 10:32 Received CULTURE BLOOD [BC] Stat Lab 07/14/20 10:41 Received PHENOBARBITAL [REF] Stat Lab 07/14/20 10:32 Received Blood Culture x2 Reflex Set [OM.PC] Stat Oth 07/14/20 09:53 Ordered Labs: Laboratory Tests 07/14/20 07/14/20 07/14/20 Range/Units 10:41 10:41 10:41 WBC 6.42 (3.98-10.04) K/mm3 RBC 4.04 (3.98-5.22) M/mm3 Hgb 13.0 (11.2-15.7) gm/dl Hct 40.1 (34.1-44.9) % MCV 99.3 H (79.4-94.8) fl MCH 32.2 (25.6-32.2) pg MCHC 32.4 (32.2-35.5) g/dl RDW Std Deviation 44.9 (36.4-46.3) fL Plt Count 219 (182-369) K/mm3 MPV 10.1 (9.4-12.3) fl Neutrophils % (Manual) 77 H (40-60) % Band Neutrophils % 0 (0-10) % Lymphocytes % (Manual) 11 L (20-40) % Atypical Lymphs % 0 % Monocytes % (Manual) 12 H (2-10) % Eosinophils % (Manual) 0 L (0.7-5.8) % Basophils % (Manual) 0 L (0.1-1.2) Platelet Estimate Adequate Poikilocytosis 1+ slight Anisocytosis 1+ slight RBC Morph Comment Abnormal ESR 2 (0-20) mm/hr Sodium 137 (136-145) mEq/L Potassium 4.0 (3.5-5.1) mEq/L Chloride 100 (98-107) mEq/L Carbon Dioxide 32 (21-32) mEq/L Anion Gap 9.0 (5-15) BUN 20 H (7-18) mg/dL Creatinine 0.5 L (0.55-1.02) mg/dL Est Cr Clr Drug Dosing 79.20 mL/min Estimated GFR (MDRD) > 60 (>60) mL/min BUN/Creatinine Ratio 40.0 H (14-18) Glucose 109 H (74-106) mg/dL Calcium 8.3 L (8.5-10.1) mg/dL Magnesium 1.7 L (1.8-2.4) mg/dl Total Bilirubin 0.1 L (0.2-1.0) mg/dL AST 57 H (15-37) U/L ALT 84 H (14-59) U/L Alkaline Phosphatase 132 H (46-116) U/L Troponin I < 0.017 (0.00-0.056) ng/mL C-Reactive Protein 5.2 H* (<1.0) mg/dL NT-Pro-B Natriuret Pep (0-125) pg/mL Total Protein 7.0 (6.4-8.2) g/dl Albumin 3.4 (3.4-5.0) g/dl Globulin 3.6 gm/dL Albumin/Globulin Ratio 0.9 L (1-2) SARS Virus RNA (PCR) (NEGATIVE) 07/14/20 07/14/20 Range/Units 10:41 10:48 WBC (3.98-10.04) K/mm3 RBC (3.98-5.22) M/mm3 Hgb (11.2-15.7) gm/dl Hct (34.1-44.9) % MCV (79.4-94.8) fl MCH (25.6-32.2) pg MCHC (32.2-35.5) g/dl RDW Std Deviation (36.4-46.3) fL Plt Count (182-369) K/mm3 MPV (9.4-12.3) fl Neutrophils % (Manual) (40-60) % Band Neutrophils % (0-10) % Lymphocytes % (Manual) (20-40) % Atypical Lymphs % % Monocytes % (Manual) (2-10) % Eosinophils % (Manual) (0.7-5.8) % Basophils % (Manual) (0.1-1.2) Platelet Estimate Poikilocytosis Anisocytosis RBC Morph Comment ESR (0-20) mm/hr Sodium (136-145) mEq/L Potassium (3.5-5.1) mEq/L Chloride (98-107) mEq/L Carbon Dioxide (21-32) mEq/L Anion Gap (5-15) BUN (7-18) mg/dL Creatinine (0.55-1.02) mg/dL Est Cr Clr Drug Dosing mL/min Estimated GFR (MDRD) (>60) mL/min BUN/Creatinine Ratio (14-18) Glucose (74-106) mg/dL Calcium (8.5-10.1) mg/dL Magnesium (1.8-2.4) mg/dl Total Bilirubin (0.2-1.0) mg/dL AST (15-37) U/L ALT (14-59) U/L Alkaline Phosphatase (46-116) U/L Troponin I (0.00-0.056) ng/mL C-Reactive Protein (<1.0) mg/dL NT-Pro-B Natriuret Pep 133 H (0-125) pg/mL Total Protein (6.4-8.2) g/dl Albumin (3.4-5.0) g/dl Globulin gm/dL Albumin/Globulin Ratio (1-2) SARS Virus RNA (PCR) Positive H (NEGATIVE) Meds: Medications Discontinued Medications Generic Name Dose Route Start Last Admin Trade Name Freq PRN Reason Stop Dose Admin Albuterol/Ipratropium 3 ml 07/14/20 09:54 07/14/20 10:15 Duoneb 3.0-0.5 Mg/3 Ml NEB 3 ml Q4H PRN Administration Shortness Of Breath/wheezing - Radiology Interpretation Free Text/Narrative:: 54-year-old female presents to the ED from a [facility] setting where she resides. Apparently she spiked a fever last evening and sounds more congested and wheezy than normal. She does require frequent suctioning due to retention of secretions in her upper airway. She has a G-tube and is fed totally through this as well as medications are given through the G-tube. Nobody has commented that there is a change in color of the suction material from the upper airway or throat.Vital signs show temperature of 37.6. Heart rate 118 and sinus at rest. Respiratory is 20 with O2 sats 100% on room air blood pressure Plan septic work-up will be carried out. This will include a coronavirus test because she lives in a [facility] setting. - Re-Assessments/Exams Free Text/Narrative Re-Assessment/Exam: 07/14/20 11:45 White count is 6.42. Differential shows 77% neutrophils no bands cells reported. Hemoglobin is 13.0 with hematocrit of 40.1. MCV is slightly elevated at 99.3. Sed rate is 2. Sodium 137 with potassium of 4.0. Chloride 100 with a bicarb of 32. Anion gap is 9.0. BUN is 20 with a creatinine of 0.5. GFR is greater than 60. Glucose is 109 with a calcium of 8.3. Magnesium slightly low at 1.7. Bilirubin is 0.1 AST slightly elevated at 57 and ALT slightly elevated at 84 alk phos stays 132. Troponin I is less than 0.017. C- reactive protein is elevated at 5.2. BNP is slightly elevated at 133. Total protein is 7.0 with an albumin fraction of 3.4 COVID-19 testing is pending. Portable chest x-ray was attempted but her right hand due to flexion contracture was overlying the right anterior chest making it almost impossible see much of the right lung field. Left lung field also was very difficult to visualize due to the patient's position. No obvious pneumonic infiltrate was appreciated. 07/14/20 12:03 Covid 19 test is positive. Patient is DO NOT RESUSCITATE and therefore will not stay in the hospital. There is a good chance that she will succumb to this illness. Type Casting Machine Operator advised in this regard. She is to be quarantined in her room for the next 14 days. Food will have to be brought to her and she is fed through her G-tube at any rate. Appropriate personal protection equipment need to be worn by all staff and all staff will likely need to be screened for COVID 19 over the next week or 10 days. In of the staff members needs to be carried out next week as well as other [facility] members. Departure - Departure Time of Disposition: 12:03 Condition: Serious - Discharge Information *PRESCRIPTION DRUG MONITORING PROGRAM REVIEWED*: Not Applicable *COPY OF PRESCRIPTION DRUG MONITORING REPORT IN PATIENT JAS: Not Applicable Sepsis Event Note (ED) - Focused Exam Vital Signs: Vital Signs Temp Pulse Resp Pulse Ox Pulse Ox 07/14/20 09:54 98 07/14/20 09:35 37.6 C 118 H 20 100 - My Orders Last 24 Hours: My Active Orders 07/14/20 09:53 Blood Culture x2 Reflex Set [OM.PC] Stat 07/14/20 10:32 CULTURE BLOOD [BC] Stat PHENOBARBITAL [REF] Stat 07/14/20 10:41 CULTURE BLOOD [BC] Stat - Assessment/Plan Last 24 Hours: My Active Orders 07/14/20 09:53 Blood Culture x2 Reflex Set [OM.PC] Stat 07/14/20 10:32 CULTURE BLOOD [BC] Stat PHENOBARBITAL [REF] Stat 07/14/20 10:41 CULTURE BLOOD [BC] Stat
[2020-07-14 09:50] VITALS: PULSE 118
[2020-07-14] MEDS ORDERED: Albuterol/Ipratropium 3.0-0.5 MG/3 ML Neb Soln NEB PRN (09:54)
--- NOTE | 2020-07-14 11:03 | CR ---
Chest: Portable supine view of the chest was obtained. Comparison: Prior chest x-ray of 02/01/18. Severe scoliosis is noted. Lungs are grossly clear. Heart size and mediastinum are grossly within normal limits. Impression: 1. Severe scoliosis. 2. Nothing acute is definitely appreciated. Diagnostic code #2 Study was dictated in MDT
== END 2020-07-14 13:13 | disposition home or self-care (01) ==
LOC: JD.ED 09:19
DX: U07.1 COVID-19 (principal); H61.23 Impacted cerumen, bilateral; R45.1 Restlessness and agitation; Z86.69 Personal history of other diseases of the nervous system and sense organs; Z79.899 Other long term (current) drug therapy
CPT/HCPCS: 36415; 71045; 80053; 80184; 83735; 83880; 84484; 85007; 85027; 85652; 86140; 87040; 94640; 99285; U0002; 99283; J7620-GY

== ENCOUNTER 2020-07-24 08:44 | Emergency (ER) | payer MEDICARE, MEDICAID ==
[2020-07-24 08:55] VITALS: BP 139/78
[2020-07-24] MEDS ORDERED: Sodium Chloride 0.9% 10 ML Syringe FLUSH PRN ×2 (09:29→09:45)
[2020-07-24] MEDS ORDERED: Iopamidol 755 Mg/ML 100 ML Bottle IVPUSH ONE (09:45)
[2020-07-24] MEDS ORDERED: Sodium Chloride 0.9% 100 ML IV SCH (09:45)
--- NOTE | 2020-07-24 09:55 | EDM.PDOC ---
ED HPI GENERAL MEDICAL PROBLEM - General Chief Complaint: Respiratory Problem Stated Complaint: COVID + Time Seen by Provider: 07/24/20 08:51 Source of Information: Reports: Provider History Limitations: Reports: Altered Mental Status - History of Present Illness INITIAL COMMENTS - FREE TEXT/NARRATIVE: The patient presents from [facility] for increased shortness of breath. She was diagnosed with COVID 19 on July 14. She is wheel chair bound and she is on oxygen normally. She went back home and they have noticed when she gets agitated her oxygen saturations will fall. They had her in the 50s at one time. She will recover. She has more congestion in her chest. They do suction her but they feel it may not be enough. They were concerned about a PE or underlying pneumonia. She is on 3L by [place] and her oxygen saturations were 99%. She is normally on 2L. Onset: Gradual Duration: Day(s): (10) Severity: Moderate Improves with: Reports: None Worsens with: Reports: None Associated Symptoms: Reports: Shortness of Breath. Denies: Cough, Fever/Chills, Nausea/Vomiting - Related Data Allergies Allergy/AdvReac Type Severity Reaction Status Date / Time No Known Allergies Allergy Verified 07/24/20 08:48 Home Meds: Home Meds Cholecalciferol (Vitamin D3) [Vitamin D3] 2,000 unit PO DAILY 06/07/14 [History] Lactulose [Generlac] 30 ml PO BID 06/07/14 [History] PHENobarbitaL [PHENobarbital] 32.4 mg PO QAM 06/07/14 [History] PHENobarbitaL [PHENobarbital] 48.6 mg PO BEDTIME 06/07/14 [History] diazePAM [Diazepam] 5 mg PO BEDTIME 06/07/14 [History] diazePAM [Valium.] 2.5 mg PO QAM 06/07/14 [History] Antipyrine/Benzocaine [Otic Care Otic Solution] 5 - 10 drop EARBOTH ASDIRECTED PRN 06/23/14 [History] Fleet Pedia-Lax Suppository 1 mg RECTAL ASDIRECTED PRN 10/21/14 [History] Acetaminophen [Acephen] 325 mg RECTAL Q4HR PRN 12/06/15 [History] Clindamycin 1% Topical. 1 applic TOP BID 12/06/15 [History] Clotrimazole [Clotrimazole 1%] 1 applic TOP BID 12/06/15 [History] Desitin Rapid Relief Topical Cream 1 applic TOP ASDIRECTED PRN 12/06/15 [History] Scopolamine [Transderm-Scop] 1 patch TOP Q72H 12/06/15 [History] carBAMazepine [Carbamazepine] 600 mg GTUBE BID 12/06/15 [History] Nutritional Supplement [Osmolite 1.2 Juan Manuel] 1 can GTUBE BID 11/30/17 [History] Nutritional Supplement [Osmolite 1.2 Juan Manuel] 2 can GTUBE BEDTIME 11/30/17 [History] Whey Protein Isolate [Beneprotein] 2 scoop GTUBE DAILY 11/30/17 [History] Albuterol [Proventil Neb Soln] 0.63 mg NEB Q2H PRN #60 neb 12/02/17 [Rx] Oseltamivir Phosphate [IJD: Tamiflu] 75 mg PO DAILY #5 capsule 12/02/17 [Rx] Past Medical History Respiratory History: Reports: Bronchitis, Recurrent, Pneumonia, Recurrent, Other (See Below) Other Respiratory History: COVID Gastrointestinal History: Reports: Other (See Below) (Fofana G-tube for nutrition since 2013 left upper midabdomen) Musculoskeletal History: Reports: Other (See Below) Other Musculoskeletal History: 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; pt is w/c bound Neurological History: Reports: Cerebral Palsy, Seizure Psychiatric History: Reports: Other (See Below) Other Psychiatric History: cerebral palsy - Infectious Disease History Infectious Disease History: Reports: Novel Coronavirus - Past Surgical History GI Surgical History: Reports: Other (See Below) Other GI Surgeries/Procedures: feeding tube Social & Family History - Family History Family Medical History: Unobtainable - Tobacco Use Smoking Status *Q: Never Smoker Second Hand Smoke Exposure: No - Caffeine Use Caffeine Use: Reports: None - Recreational Drug Use Recreational Drug Use: No - Living Situation & Occupation Living situation: Reports: Extended Care Facility (Patient lives in a [facility] or [facility] facility.) Occupation: Disabled ED ROS GENERAL - Review of Systems Review Of Systems: See Below Constitutional: Denies: Fever HEENT: Reports: No Symptoms Respiratory: Reports: Shortness of Breath. Denies: Cough Cardiovascular: Reports: No Symptoms Endocrine: Reports: No Symptoms GI/Abdominal: Reports: No Symptoms : Reports: No Symptoms ED EXAM, GENERAL - Physical Exam Exam: See Below Exam Limited By: Altered Mental Status General Appearance: Other (Sleeping) Nose: Normal Inspection Head: Atraumatic, Normocephalic Neck: Normal Inspection Respiratory/Chest: No Respiratory Distress, Decreased Breath Sounds, Rhonchi (right lung) Cardiovascular: Regular Rate, Rhythm, No Edema, No Murmur GI/Abdominal: Soft, Non-Tender, No Organomegaly, No Mass Extremities: Normal Inspection Course - Vital Signs Last Recorded V/S: Last Vital Signs Temp 97.8 F 07/24/20 08:48 Pulse 80 07/24/20 08:48 Resp 20 07/24/20 08:48 BP 139/78 07/24/20 08:48 Pulse Ox 97 07/24/20 10:04 - Orders/Labs/Meds Orders: Active Orders 24 hr Category Date Time Status Cardiac Monitoring [RC] . DIRECTED Care 07/24/20 09:29 Active Oxygen Therapy [RC] PRN Care 07/24/20 09:29 Active Peripheral IV Care [RC] . DIRECTED Care 07/24/20 09:30 Active C-REACTIVE PROTEIN [CHEM] Stat Lab 07/24/20 09:54 Results COMPREHENSIVE METABOLIC PN,CMP [CHEM] Stat Lab 07/24/20 09:54 Results CREATINE KINASE,CK [CHEM] Stat Lab 07/24/20 09:54 Results LACTATE DEHYDROGENASE,LDH [CHEM] Stat Lab 07/24/20 09:54 Results Sodium Chloride 0.9% [Normal Saline] 100 ml Med 07/24/20 09:45 Active IV ASDIRECTED Sodium Chloride 0.9% [Saline Flush] Med 07/24/20 09:29 Active 10 ml FLUSH ASDIRECTED PRN Sodium Chloride 0.9% [Saline Flush] Med 07/24/20 09:45 Active 10 ml FLUSH ONETIME PRN Peripheral IV Insertion Adult [OM.PC] Stat Oth 07/24/20 09:29 Ordered Medication Orders Sodium Chloride (Normal Saline) 100 mls @ 75 mls/hr IV ASDIRECTED CRYSTAL Sodium Chloride (Saline Flush) 10 ml FLUSH ASDIRECTED PRN PRN Reason: Keep Vein Open Last Admin: 07/24/20 10:05 Dose: 10 ml Documented by: MEL Sodium Chloride (Saline Flush) 10 ml FLUSH ONETIME PRN PRN Reason: IV FLUSH Labs: Laboratory Tests 07/24/20 07/24/20 07/24/20 Range/Units 09:54 09:54 09:54 WBC 5.94 (3.98-10.04) K/mm3 RBC 3.88 L (3.98-5.22) M/mm3 Hgb 12.1 (11.2-15.7) gm/dl Hct 39.5 (34.1-44.9) % MCV 101.8 H (79.4-94.8) fl MCH 31.2 (25.6-32.2) pg MCHC 30.6 L (32.2-35.5) g/dl RDW Std Deviation 46.7 H (36.4-46.3) fL Plt Count 529 H D (182-369) K/mm3 MPV 9.8 (9.4-12.3) fl Neut % (Auto) 72.0 H (34.0-71.1) % Lymph % (Auto) 17.0 L (19.3-51.7) % [place] % (Auto) 9.8 (4.7-12.5) % Eos % (Auto) 0.2 L (0.7-5.8) Baso % (Auto) 0.5 (0.1-1.2) % Neut # (Auto) 4.28 (1.56-6.13) K/mm3 Lymph # (Auto) 1.01 L (1.18-3.74) K/mm3 [place] # (Auto) 0.58 H (0.24-0.36) K/mm3 Eos # (Auto) 0.01 L (0.04-0.36) K/mm3 Baso # (Auto) 0.03 (0.01-0.08) K/mm3 D-Dimer, Quantitative 0.50 (0.19-0.50) mg/L Sodium 137 (136-145) mEq/L Potassium 4.9 (3.5-5.1) mEq/L Chloride 99 (98-107) mEq/L Carbon Dioxide 39 H (21-32) mEq/L Anion Gap 3.9 L (5-15) BUN 16 (7-18) mg/dL Creatinine 0.5 L (0.55-1.02) mg/dL Est Cr Clr Drug Dosing 77.15 mL/min Estimated GFR (MDRD) > 60 (>60) mL/min BUN/Creatinine Ratio 32.0 H (14-18) Glucose 166 H (74-106) mg/dL Ferritin (8-252) ng/ml Total Bilirubin 0.1 L (0.2-1.0) mg/dL AST 20 (15-37) U/L ALT 41 (14-59) U/L Alkaline Phosphatase 139 H (46-116) U/L Lactate Dehydrogenase 219 (81-234) U/L Creatine Kinase 58 (26-192) U/L C-Reactive Protein 3.7 H* (<1.0) mg/dL Total Protein 7.4 (6.4-8.2) g/dl Albumin 2.7 L (3.4-5.0) g/dl Globulin 4.7 gm/dL Albumin/Globulin Ratio 0.6 L (1-2) 08/25/20 Range/Units 09:54 WBC (3.98-10.04) K/mm3 RBC (3.98-5.22) M/mm3 Hgb (11.2-15.7) gm/dl Hct (34.1-44.9) % MCV (79.4-94.8) fl MCH (25.6-32.2) pg MCHC (32.2-35.5) g/dl RDW Std Deviation (36.4-46.3) fL Plt Count (182-369) K/mm3 MPV (9.4-12.3) fl Neut % (Auto) (34.0-71.1) % Lymph % (Auto) (19.3-51.7) % [place] % (Auto) (4.7-12.5) % Eos % (Auto) (0.7-5.8) Baso % (Auto) (0.1-1.2) % Neut # (Auto) (1.56-6.13) K/mm3 Lymph # (Auto) (1.18-3.74) K/mm3 [place] # (Auto) (0.24-0.36) K/mm3 Eos # (Auto) (0.04-0.36) K/mm3 Baso # (Auto) (0.01-0.08) K/mm3 D-Dimer, Quantitative (0.19-0.50) mg/L Sodium (136-145) mEq/L Potassium (3.5-5.1) mEq/L Chloride (98-107) mEq/L Carbon Dioxide (21-32) mEq/L Anion Gap (5-15) BUN (7-18) mg/dL Creatinine (0.55-1.02) mg/dL Est Cr Clr Drug Dosing mL/min Estimated GFR (MDRD) (>60) mL/min BUN/Creatinine Ratio (14-18) Glucose (74-106) mg/dL Ferritin 112 (8-252) ng/ml Total Bilirubin (0.2-1.0) mg/dL AST (15-37) U/L ALT (14-59) U/L Alkaline Phosphatase (46-116) U/L Lactate Dehydrogenase (81-234) U/L Creatine Kinase (26-192) U/L C-Reactive Protein (<1.0) mg/dL Total Protein (6.4-8.2) g/dl Albumin (3.4-5.0) g/dl Globulin gm/dL Albumin/Globulin Ratio (1-2) Meds: Medications Generic Name Dose Route Start Last Admin Trade Name Freq PRN Reason Stop Dose Admin Sodium Chloride 100 mls @ 75 mls/hr 07/24/20 09:45 Normal Saline IV ASDIRECTED CRYSTAL Sodium Chloride 10 ml 07/24/20 09:29 07/24/20 10:05 Saline Flush FLUSH 10 ml ASDIRECTED PRN Administration Keep Vein Open Sodium Chloride 10 ml 07/24/20 09:45 Saline Flush FLUSH ONETIME PRN IV FLUSH Discontinued Medications Generic Name Dose Route Start Last Admin Trade Name Freq PRN Reason Stop Dose Admin Iopamidol 100 ml 07/24/20 09:45 [id number] (76%) IVPUSH 07/24/20 09:46 ONETIME ONE - Re-Assessments/Exams Free Text/Narrative Re-Assessment/Exam: 07/24/20 09:55 I ordered oxygen, IV saline lock, labs and a CT angio of her chest. 07/24/20 11:19 Her WBC was normal at 5.94. Her platelets are elevated at 529. Her D-dimer is normal. Her glucose is elevated at 166. Her ferritin is normal at 112. Her Alk phos is elevated at 139. Her CRP is elevated at 3.7. This is improved from 10 days ago. 07/24/20 11:[address] shows difficult to interpret study due to patient's scoliosis. No definite findings of pulmonary embolism are seen. Atelectasis with the right lung which is most likely chronic. No definite acute parenchymal process is appreciated. I called Puja Tompkins and updated her. The patient's COVID markers are looking good. I will discharge her home and they can continue the treatments and oxygen. Departure - Departure Time of Disposition: 11:35 Disposition: Home, Self-Care 01 Condition: Good Clinical Impression: COVID-19 - Discharge Information *PRESCRIPTION DRUG MONITORING PROGRAM REVIEWED*: Not Applicable *COPY OF PRESCRIPTION DRUG MONITORING REPORT IN PATIENT JAS: Not Applicable Referrals: Puja Tompkins, [facility] [Primary Care Provider] - Forms: ED Department Discharge Additional Instructions: Keep doing the treatments and oxygen at 3L. Try weaning her down in a couple of days. Follow up with Puja Tompkins and please return if Wandy is worse. Sepsis Event Note (ED) - Evaluation Sepsis Screening Result: No Definite Risk - Focused Exam Vital Signs: Vital Signs Temp Pulse Resp BP Pulse Ox Pulse Ox 07/24/20 10:04 97 07/24/20 08:48 97.8 F 80 20 139/78 99 - My Orders Last 24 Hours: My Active Orders 07/24/20 09:29 Cardiac Monitoring [RC] . DIRECTED Oxygen Therapy [RC] PRN Sodium Chloride 0.9% [Saline Flush] 10 ml FLUSH ASDIRECTED PRN Peripheral IV Insertion Adult [OM.PC] Stat 07/24/20 09:30 Peripheral IV Care [RC] . DIRECTED 07/24/20 09:45 Sodium Chloride 0.9% [Normal Saline] 100 ml IV ASDIRECTED Sodium Chloride 0.9% [Saline Flush] 10 ml FLUSH ONETIME PRN 07/24/20 09:54 C-REACTIVE PROTEIN [CHEM] Stat COMPREHENSIVE METABOLIC PN,CMP [CHEM] Stat CREATINE KINASE,CK [CHEM] Stat LACTATE DEHYDROGENASE,LDH [CHEM] Stat - Assessment/Plan Last 24 Hours: My Active Orders 07/24/20 09:29 Cardiac Monitoring [RC] . DIRECTED Oxygen Therapy [RC] PRN Sodium Chloride 0.9% [Saline Flush] 10 ml FLUSH ASDIRECTED PRN Peripheral IV Insertion Adult [OM.PC] Stat 07/24/20 09:30 Peripheral IV Care [RC] . DIRECTED 07/24/20 09:45 Sodium Chloride 0.9% [Normal Saline] 100 ml IV ASDIRECTED Sodium Chloride 0.9% [Saline Flush] 10 ml FLUSH ONETIME PRN 07/24/20 09:54 C-REACTIVE PROTEIN [CHEM] Stat COMPREHENSIVE METABOLIC PN,CMP [CHEM] Stat CREATINE KINASE,CK [CHEM] Stat LACTATE DEHYDROGENASE,LDH [CHEM] Stat
--- NOTE | 2020-07-24 11:10 | CT ---
CT chest Technique: Multiple axial sections through the chest were obtained. Intravenous contrast was utilized. Study performed as pulmonary angiogram protocol. Findings: Interpretation is difficult due to deformity of the chest caused by severe scoliosis. Pulmonary arteries showed no discrete filling defects to indicate definite pulmonary embolism. Heart size is not enlarged. No discrete mediastinal adenopathy is seen. Right lung shows slight atelectasis most likely chronic. Left lung shows no acute parenchymal change. Aorta shows no aneurysm. Visualized upper abdominal structures shows no discrete abnormality. Impression: 1. Difficult to interpret study due to patient's scoliosis. 2. No definite findings of pulmonary embolism are seen. 3. Atelectasis with the right lung which is most likely chronic. No definite acute parenchymal process is appreciated. Diagnostic code #2 This report was dictated in MDT
[2020-07-24 12:34] VITALS: PULSE 107
== END 2020-07-24 12:08 | disposition home or self-care (01) ==
LOC: JD.ED 08:44 → SUPCPDRO 08:44 → JD.ED 12:08
DX: U07.1 COVID-19 (principal); G80.9 Cerebral palsy, unspecified; R56.9 Unspecified convulsions; Z79.899 Other long term (current) drug therapy
CPT/HCPCS: 36415; 71275; 71275-26; 80053; 82550; 82728; 83615; 85025; 85379; 86140; 94762; 99283; 99285-25

== ENCOUNTER 2022-02-16 11:01 | Emergency (ER) | payer MEDICARE, MEDICAID ==
[2022-02-16 11:17] VITALS: BP 147/108; PULSE 89
[2022-02-16] MEDS ORDERED: Albuterol/Ipratropium 3.0-0.5 MG/3 ML Neb Soln NEB ONE (11:21)
[2022-02-16] MEDS ORDERED: Sodium Chloride 0.9% 10 ML Syringe FLUSH PRN (11:21)
[2022-02-16 12:25] LABS: CORONAVIRUS COVID-19 NAA NEGATIVE (NEGATIVE)
[2022-02-16] MEDS ORDERED: Azithromycin 200 MG/5 ML Susp 30 ML Bottle PO ONE (14:41)
== END 2022-02-16 15:04 | disposition home or self-care (01) ==
LOC: JD.ED 11:01
DX: J40 Bronchitis, not specified as acute or chronic (principal); Z20.822 Contact with and (suspected) exposure to COVID-19
CPT/HCPCS: 0241U; 36415; 71045; 71250; 80053; 83880; 85025; 86140; 94640; 99285; A9270; J7620-GY

== ENCOUNTER 2022-05-29 18:43 | Emergency (ER) | payer MEDICARE, MEDICAID ==
[2022-05-29 19:05] VITALS: PULSE 125
[2022-05-29] MEDS ORDERED: Diazepam 5 MG Tab GTUBE ONE (19:58)
== END 2022-05-29 21:57 ==
LOC: JD.ED 18:43
DX: S49.91XA Unspecified injury of right shoulder and upper arm, initial encounter (principal); Z86.16 Personal history of COVID-19
CPT/HCPCS: 73030-RT; 99283; A9270-GY

== ENCOUNTER 2023-07-27 12:31 | Emergency (ER) | payer MEDICARE, MEDICAID ==
[2023-07-27 14:09] LABS: BASOPHILS PERCENT AUTO 0.5 % (0.0-1.0); EOSINOPHILS ABSOLUTE AUTO 0.1 K/mm3 (0.0-0.4); EOSINOPHILS PERCENT AUTO 0.6 % (0.0-6.0); HEMATOCRIT 37.7 % (37.0-47.0); HEMOGLOBIN 12.7 gm/dl (12.0-16.0); IMMATURE GRAN ABSOLUTE AUTO 0.02 K/mm3 (0.00-0.05); IMMATURE GRAN PERCENT AUTO 0.3 % (0.0-0.4); LYMPHOCYTES ABSOLUTE AUTO 1.3 K/mm3 (1.0-4.8); LYMPHOCYTES PERCENT AUTO 16.8 % (24.0-44.0); MEAN CORPUSCULAR HEMOGLOBIN 31.8 pg (28.0-32.0); MEAN CORPUSCULAR HGB CONC 33.7 g/dl (32.0-36.0); MEAN CORPUSCULAR VOLUME 94.3 fl (83.0-99.0); MEAN PLATELET VOLUME 8.9 fl (9.4-12.3); MONOCYTES ABSOLUTE AUTO 0.7 K/mm3 (0.0-0.8); MONOCYTES PERCENT AUTO 8.9 % (0.0-8.0); NEUTROPHILS ABSOLUTE AUTO 5.6 K/mm3 (1.8-7.7); NEUTROPHILS PERCENT AUTO 72.9 % (41.0-71.0); PLATELET COUNT,PLT 284 K/mm3 (150-400); WHITE BLOOD CELL COUNT,WBC 7.72 K/mm3 (3.9-11.3)
[2023-07-27 14:30] LABS: A/G RATIO 0.8 (1-2); ALBUMIN 3.5 g/dl (3.4-5.0); ANION GAP 9.5 (5-15); BILIRUBIN TOTAL 0.2 mg/dL (0.2-1.0); C-REACTIVE PROTEIN 0.8 mg/dL (<1.0); CALCIUM 8.9 mg/dL (8.5-10.1); CREATININE 0.4 mg/dL (0.55-1.02); EST CRCL DRUG DOSING (CG) 98.96 mL/min; POTASSIUM,K 4.5 mEq/L (3.5-5.1); PROTEIN TOTAL,TP 7.7 g/dl (6.4-8.2)
[2023-07-27] MEDS ORDERED: OLANZapine 5 MG Tab PO ONE (15:08)
[2023-07-27] MEDS ORDERED: Ibuprofen Susp 100 MG/5 ML 5 ML UD Cup PO ONE (15:08)
[2023-07-27 17:34] LABS: APPEARANCE,URINE SLT CLOUDY (Clear); BILIRUBIN,URINE NEGATIVE (Negative); COLOR,URINE YELLOW (Yellow); GLUCOSE,URINE NEGATIVE (Negative); KETONES,URINE NEGATIVE (Negative); LEUKOCYTE ESTERASE,URINE 1+ (Negative); NITRITE,URINE NEGATIVE (Negative); OCCULT BLOOD,URINE NEGATIVE (Negative); PROTEIN,URINE 1+ (Negative); UROBILINOGEN,URINE 0.2 (0.2-1.0)
[2023-07-27 17:49] LABS: BACTERIA,URINE MANY /hpf (FEW); MUCUS,URINE FEW /hpf (FEW); RBC,URINE 0-5 /hpf (0-5); SQUAMOUS EPITHELIAL CELLS,UR 0-5 /hpf (0-5)
[2023-07-27] MEDS ORDERED: Iopamidol 612 MG/ML 100 ML Bottle IVPUSH ONE (20:56)
[2023-07-27 21:56] VITALS: BP 94/56; PULSE 76
== END 2023-07-27 21:57 | disposition home or self-care (01) ==
LOC: JD.ED 12:31
DX: K52.9 Noninfective gastroenteritis and colitis, unspecified (principal); Z86.16 Personal history of COVID-19; Z20.822 Contact with and (suspected) exposure to COVID-19
CPT/HCPCS: 36415; 71045; 71260; 74177; 80053; 81001; 83735; 85025; 86140; 87086; 87088; 87186; 87651; 93005; 99285; A9270; Q9967; U0002; 93010; 99284

== ENCOUNTER 2023-08-04 15:53 | Emergency (ER) | payer MEDICARE, MEDICAID ==
[2023-08-04 16:50] LABS: BASOPHILS ABSOLUTE AUTO 0.1 K/mm3 (0.0-0.2); BASOPHILS PERCENT AUTO 0.9 % (0.0-1.0); EOSINOPHILS ABSOLUTE AUTO 0.1 K/mm3 (0.0-0.4); EOSINOPHILS PERCENT AUTO 1.4 % (0.0-6.0); HEMATOCRIT 40.1 % (37.0-47.0); HEMOGLOBIN 12.8 gm/dl (12.0-16.0); IMMATURE GRAN ABSOLUTE AUTO 0.01 K/mm3 (0.00-0.05); IMMATURE GRAN PERCENT AUTO 0.2 % (0.0-0.4); LYMPHOCYTES PERCENT AUTO 18.5 % (24.0-44.0); MEAN CORPUSCULAR HEMOGLOBIN 31.3 pg (28.0-32.0); MEAN CORPUSCULAR HGB CONC 31.9 g/dl (32.0-36.0); MEAN PLATELET VOLUME 8.9 fl (9.4-12.3); MONOCYTES ABSOLUTE AUTO 0.5 K/mm3 (0.0-0.8); MONOCYTES PERCENT AUTO 8.6 % (0.0-8.0); NEUTROPHILS ABSOLUTE AUTO 3.9 K/mm3 (1.8-7.7); NEUTROPHILS PERCENT AUTO 70.4 % (41.0-71.0); PLATELET COUNT,PLT 330 K/mm3 (150-400); RED BLOOD CELL COUNT 4.09 M/mm3 (4.10-5.30); WHITE BLOOD CELL COUNT,WBC 5.58 K/mm3 (3.9-11.3)
[2023-08-04 17:30] LABS: A/G RATIO 0.7 (1-2); ALANINE AMINOTRANSFERASE,ALT 39 U/L (14-59); ALBUMIN 3.5 g/dl (3.4-5.0); ALKALINE PHOSPHATASE 142 U/L (46-116); ANION GAP 7.9 (5-15); ASPARTATE AMNIOTRANSFERASE,AST 19 U/L (15-37); BILIRUBIN TOTAL 0.1 mg/dL (0.2-1.0); BLOOD UREA NITROGEN,BUN 15 mg/dL (7-18); BUN/CREATININE RATIO 37.5 (14-18); CALCIUM 9.3 mg/dL (8.5-10.1); CARBON DIOXIDE,CO2 37 mEq/L (21-32); CHLORIDE,CL 96 mEq/L (98-107); CREATININE 0.4 mg/dL (0.55-1.02); ESTIMATED GFR 116 mL/min (>60); GLUCOSE RANDOM 127 mg/dL (70-99); POTASSIUM,K 4.9 mEq/L (3.5-5.1); PROTEIN TOTAL,TP 8.2 g/dl (6.4-8.2); SODIUM,NA 136 mEq/L (136-145)
[2023-08-04] MEDS ORDERED: Albuterol/Ipratropium 3.0-0.5 MG/3 ML Neb Soln NEB ONE (18:57)
[2023-08-04 20:31] VITALS: BP 141/82; PULSE 85
== END 2023-08-04 19:52 | disposition home or self-care (01) ==
LOC: JD.ED 15:53
DX: R06.2 Wheezing (principal); Z86.16 Personal history of COVID-19; Z20.822 Contact with and (suspected) exposure to COVID-19; Z79.899 Other long term (current) drug therapy
CPT/HCPCS: 36415; 71250; 74176; 80053; 85025; 94640; 99285; U0002; J7620-GY